=== PATIENT | female | born 1960 | race Caucasian/White ===

== ENCOUNTER 2016-11-18 22:01 | Emergency (ER) | payer MEDICARE, OTHER ==
[2016-11-18 22:16] VITALS: BP 153/94
--- NOTE | 2016-11-18 22:20 | PHYS DOC ---
Past Medical History Past Medical History: Anxiety, Bipolar, Depression, GERD, Hypertension Past Surgical History: Cholecystectomy, Other Additional Past Surgical Histo: R ARM Alcohol Use: None Drug Use: None Adult General Chief Complaint Chief Complaint: FOOT INJURY PAIN HPI HPI Patient is a 56 year old female presents emergency department stating that she stepped her right foot onto the concrete steps. She states that this happened approximately one hour prior to arrival. She does have bruising noted around the third and fourth toe. She has not taken anything for pain and discomfort. Patient is alert and oriented talking to herself in her room. Review of Systems Review of Systems Constitutional: Denies fever or chills [] Eyes: Denies change in visual acuity, redness, or eye pain [] HENT: Denies nasal congestion or sore throat [] Respiratory: Denies cough or shortness of breath [] Cardiovascular: No additional information not addressed in HPI [] GI: Denies abdominal pain, nausea, vomiting, bloody stools or diarrhea [] : Denies dysuria or hematuria [] Musculoskeletal: Denies back pain. Complaint of right foot pain Integument: Denies rash or skin lesions [] Neurologic: Denies headache, focal weakness or sensory changes [] Allergies Allergies Allergies Coded Allergies Type Severity Reaction Last Updated Verified haloperidol Allergy Unknown TARDIVE DYSKENESIA 07/08/15 Yes Physical Exam Physical Exam Constitutional: Well developed, well nourished, no acute distress, non-toxic appearance. [] HENT: Normocephalic, atraumatic, bilateral external ears normal, oropharynx moist, no oral exudates, nose normal. [] Eyes: PERRLA, EOMI, conjunctiva normal, no discharge. [] Neck: Normal range of motion, no tenderness, supple, no stridor. [] Cardiovascular:Heart rate regular rhythm Lungs & Thorax: No respiratory distress noted Skin: Warm, dry, no erythema, no rash. [] Back: No tenderness Extremities: Right foot tenderness, no cyanosis, no clubbing, ROM intact, no edema. Peripheral pulses 2+ cap refill brisk less than 2 seconds good sensation noted to all the toes. Patient does have bruising noted to the metatarsal areas on the third and fourth toe. A shunt able to ambulate on the foot without difficulty. Neurologic: Alert and oriented X 3, normal motor function, normal sensory function, no focal deficits noted. [] Psychologic: Affect normal, judgement normal, mood normal. [] Current Patient Data Vital Signs Vital Signs Date Time Temp Pulse Resp B/P Pulse Ox O2 Delivery O2 Flow Rate FiO2 11/18/16 22:16 98.2 100 20 97 Room Air 98.2 EKG EKG [] Radiology/Procedures Radiology/Procedures [] Course & Med Decision Making Course & Med Decision Making Pertinent Labs and Imaging studies reviewed. (See chart for details) Patient eloped from the department while waiting for x-rays. Patient was very agitated in the emergency department talking to herself and carrying on conversations. Patient was able to ambulate out of the department with a good steady gait. [] Dragon Disclaimer Dragon Disclaimer This electronic medical record was generated, in whole or in part, using a voice recognition dictation system. Departure Departure Impression: Primary Impression: Foot pain, right Additional Impression: At risk for elopement Disposition: 01 HOME, SELF-CARE Condition: STABLE Referrals: OLESYA BURGESS MD (PCP) Problem Qualifiers RAVI MCDOWELL APRN Nov 18, 2016 22:20
== END 2016-11-18 22:55 | disposition home or self-care (01) ==
LOC: ER 22:01
DX: M79.671 Pain in right foot (principal); F31.9 Bipolar disorder, unspecified; K21.9 Gastro-esophageal reflux disease without esophagitis; I10 Essential (primary) hypertension; F41.9 Anxiety disorder, unspecified; F32.9 Major depressive disorder, single episode, unspecified; Z90.49 Acquired absence of other specified parts of digestive tract; Z88.8 Allergy status to other drugs, medicaments and biological substances
CPT/HCPCS: 99281

== ENCOUNTER 2017-10-12 10:22 | Emergency (ER) | payer MEDICARE, OTHER ==
[2017-10-12] MEDS ORDERED: IV NORMAL SALINE 1000ML BAG 1,000 ML IV (11:15)
== END 2017-10-12 12:17 | disposition home or self-care (01) ==
LOC: ER 10:22
DX: S92.321A Displaced fracture of second metatarsal bone, right foot, initial encounter for closed fracture (principal); S92.331A Displaced fracture of third metatarsal bone, right foot, initial encounter for closed fracture; F41.9 Anxiety disorder, unspecified; F31.9 Bipolar disorder, unspecified; K21.9 Gastro-esophageal reflux disease without esophagitis; I10 Essential (primary) hypertension; Z90.49 Acquired absence of other specified parts of digestive tract; Z88.8 Allergy status to other drugs, medicaments and biological substances; W22.8XXA Striking against or struck by other objects, initial encounter; Y93.89 Activity, other specified; Y92.149 Unspecified place in prison as the place of occurrence of the external cause; Y99.8 Other external cause status
CPT/HCPCS: 73630; 99284

== ENCOUNTER 2019-04-09 14:17 | Emergency (ER) | payer MEDICARE, MEDICAID ==
[~2019-04-09] VITALS: Ht 172.7 cm; Wt 104.3 kg
[~2019-04-09 14:17] MED LIST: HYDR-3164 PO
[2019-04-09 15:14] VITALS: BP 124/83
[2019-04-09] MEDS ORDERED: DICL50TA2 PO (15:22)
[2019-04-09] MEDS ORDERED: METH4TAB2 PO (15:22)
[2019-04-09] MEDS ORDERED: CYCL10TA2 PO (15:22)
--- NOTE | 2019-04-09 15:23 | PHYS DOC ---
Past Medical History Past Medical History: Anxiety, Bipolar, Depression, GERD, Hypertension (EMERITA MCLAIN APRN) Past Surgical History: Appendectomy, Cholecystectomy, Other Additional Past Surgical Histo: R ARM (EMERITA MCLAIN APRN) Alcohol Use: None Drug Use: None (EMERITA MCLAIN APRN) Adult General Chief Complaint Chief Complaint: LOWER EXT PAIN HPI HPI Patient is a 58 year old female with history of bipolar, hypertension, depression, acid reflex, who presents to the ED today complaining of 10 out of 10 left groin pain radiating to the left lower extremity that began 3 weeks ago but has gotten worse in the last 1 week. Patient states the pain is worse when she raises her left upper extremity up. She states the pain is relieved when she is laying down. She states she was seen by her own doctor and was given some muscle relaxers and anti-inflammatories, she states she completed them couple days ago. Denies any known injury. Denies any loss of bowel bladder function. (EMERITA MCLAIN APRN) Review of Systems Review of Systems Constitutional: Denies fever or chills [] GI: Denies abdominal pain, nausea, vomiting, bloody stools or diarrhea [] : Denies dysuria or hematuria [] Musculoskeletal:Reports left groin pain radiating to the LLE Integument: Denies rash or skin lesions [] Neurologic: Denies headache, focal weakness or sensory changes [] All other systems were reviewed and found to be within normal limits, except as documented in this note. (EMERITA MCLAIN APRN) Allergies Allergies Allergies Coded Allergies Type Severity Reaction Last Updated Verified haloperidol Allergy Unknown TARDIVE DYSKENESIA 07/08/15 Yes (PATRICK WADSWORTH MD) Physical Exam Physical Exam Constitutional: Well developed, well nourished, no acute distress, non-toxic appearance. [] Skin: Warm, dry, no erythema, no rash. [] Back: No tenderness, no CVA tenderness. Positive straight leg raises to the left lower extremity at approximately 30�. Extremities: No tenderness, no cyanosis, no clubbing, ROM intact, no edema. [] Neurologic: Alert and oriented X 3, normal motor function, normal sensory function, no focal deficits noted. [] Psychologic: Affect normal, judgement normal, mood normal. [] (EMERITA MCLAIN APRN) Current Patient Data Vital Signs Vital Signs Date Time Temp Pulse Resp B/P (MAP) Pulse Ox O2 Delivery O2 Flow Rate FiO2 04/09/19 15:14 98.3 91 16 124/83 (97) 95 Room Air 98.3 (PATRICK WADSWORTH MD) EKG EKG [] (EMERITA MCLAIN APRN) Radiology/Procedures Radiology/Procedures [] (EMERITA MCLAIN APRN) Course & Med Decision Making Course & Med Decision Making Pertinent Labs and Imaging studies reviewed. (See chart for details) This is a 58-year-old female patient presenting to the ED today with pain consistent of sciatica no cauda equina syndrome symptoms. We will send her home discharge with Medrol Dosepak, cyclobenzaprine and diclofenac. Follow-up with PCP in one week. Ice/elevation recommended. Provided return precautions. (EMERITA MCLAIN APRN) Course & Med Decision Making Staff Physician Addendum: I was working in the ER during the course of this patient's visit. I was available for consultation as needed, but I was not directly involved in the care of this patient. (PATRICK WADSWORTH MD) Dragon Disclaimer Dragon Disclaimer This electronic medical record was generated, in whole or in part, using a voice recognition dictation system. (EMERITA MCLAIN APRN) Departure Departure Impression: Primary Impression: Sciatica, left side Disposition: 01 HOME, SELF-CARE (history) Condition: STABLE Referrals: UNKNOWN PCP NAME (PCP) follow up with your doctor in one week Patient Instructions: Sciatica, [id number] Additional Instructions: You were evaluated in the emergency room with pain suspicious of sciatica.Take medicines prescribed as ordered. Follow-up with your doctor in 1-2 weeks. Try to ice and elevate the affected extremity. Scripts Cyclobenzaprine Hcl (CYCLOBENZAPRINE HCL) 10 Mg Tablet 1 TAB PO TID, #30 TAB Prov: EMERITA MCLAIN APRN 04/09/19 Methylprednisolone (MEDROL) 4 Mg Tab.ds.pk 1 PKG PO UD, #1 PKG Prov: EMERITA MCLAIN APRN 04/09/19 Diclofenac Potassium (DICLOFENAC POTASSIUM) 50 Mg Tablet 1 TAB PO BID, #14 TAB 0 Refills Prov: EMERITA MCLAIN APRN 04/09/19 EMERITA MCLAIN APRN Apr 09, 2019 15:22 PATRICK WADSWORTH MD Apr 12, 2019 09:05
== END 2019-04-09 15:33 | disposition home or self-care (01) ==
LOC: ER 14:17
DX: M54.32 Sciatica, left side (principal); R10.32 Left lower quadrant pain; F31.9 Bipolar disorder, unspecified; K21.9 Gastro-esophageal reflux disease without esophagitis; F41.9 Anxiety disorder, unspecified; I10 Essential (primary) hypertension; Z90.89 Acquired absence of other organs; Z90.49 Acquired absence of other specified parts of digestive tract; Z88.8 Allergy status to other drugs, medicaments and biological substances
CPT/HCPCS: 99283

== ENCOUNTER → 2019-04-18 | Outpatient (CLI) | payer MEDICARE, MEDICAID ==
[2019-04-09 15:14] VITALS: BP 124/83
[~2019-04-18] MED LIST changes: +CYCL10TA2 PO; +DICL50TA2 PO; +METH4TAB2 PO
--- NOTE | 2019-04-19 10:22 | RAD ---
LUMBAR SPINE 2-3V History: Severe low back pain Comparison: None. Findings: 2 views of the lumbar spine are submitted. Lumbar vertebral body stature and AP alignment are maintained. There is [id number] degenerative disc disease at L5-S1. There is very mild inferior lumbar levoscoliosis. There is atherosclerotic calcification of the abdominal aorta. There is mild spondylosis greatest L3-4. There is facet degenerative change greater inferiorly of the lumbar spine. There has been cholecystectomy. There is a small calcific opacity projecting over the left superior sacrum. Impression: 1. There is mild spondylosis. There is [id number] L5-S1 degenerative disc disease. There is multilevel facet degenerative change. 2. There is a small calcific opacity projecting over the left superior sacrum. Ureteral calculus is not excluded by this exam although otherwise difficult to characterize AP location. Electronically signed by: John Gould MD (04/19/2019 10:19 AM) [email or web address]
--- NOTE | 2019-04-19 11:12 | RAD ---
HIP LEFT 2 VIEW History: Left hip pain Comparison: None. Findings: 2 views of the left hip are submitted. No acute fracture or dislocation is identified. There is mild osteoarthritic change of the left hip. Left femoral head morphology is maintained. Impression: 1. There is mild osteoarthritic change of the left hip. Electronically signed by: John Gould MD (04/19/2019 11:09 AM) [email or web address]
== END | disposition home or self-care (01) ==
LOC: RAD 16:51
PROVIDERS: ATTEND Internal Medicine Cardiovascular Disease
DX: M51.37 Other intervertebral disc degeneration, lumbosacral region (principal); M47.816 Spondylosis without myelopathy or radiculopathy, lumbar region; M53.88 Other specified dorsopathies, sacral and sacrococcygeal region; M16.12 Unilateral primary osteoarthritis, left hip; I70.0 Atherosclerosis of aorta; Z90.49 Acquired absence of other specified parts of digestive tract
CPT/HCPCS: 72100; 73502

== ENCOUNTER → 2019-04-19 | Outpatient (CLI) | payer MEDICARE, MEDICAID ==
[2019-04-09 15:14] VITALS: BP 124/83
[2019-04-19 09:00] LABS: BASO % 1 % (0-3); EOS # 0.1 x10^3/uL (0.0-0.7); EOS % 2 % (0-3); HEMATOCRIT 41.7 % (36.0-47.0); HEMOGLOBIN 14.3 g/dL (12.0-15.5); LYMPH # 1.4 x10^3/uL (1.0-4.8); LYMPH % 27 % (24-48); MEAN CORPUSCULAR HEMOGLOBIN 32 pg (25-35); MEAN CORPUSCULAR HGB CONC 34 g/dL (31-37); MEAN CORPUSCULAR VOLUME 92 fL (79-100); MONO # 0.4 x10^3/uL (0.0-1.1); MONO % 7 % (0-9); NEUT # 3.3 x10^3/uL (1.8-7.7); NEUT % 63 % (31-73); PLATELET COUNT 143 x10^3/uL (140-400); RED BLOOD COUNT 4.53 x10^6/uL (3.50-5.40); RED CELL DISTRIBUTION WIDTH 13.7 % (11.5-14.5); WHITE BLOOD COUNT 5.2 x10^3/uL (4.0-11.0)
[2019-04-19 09:06] LABS: ALBUMIN 3.2 g/dL (3.4-5.0); ALBUMIN/GLOBULIN RATIO 0.7 (1.0-1.7); CALCIUM 9.1 mg/dL (8.5-10.1); GFR 56.9; POTASSIUM 3.1 mmol/L (3.5-5.1); TOTAL BILIRUBIN 0.7 mg/dL (0.2-1.0); TOTAL PROTEIN 7.7 g/dL (6.4-8.2)
[2019-04-19 09:09] LABS: CHOLESTEROL/HDL RATIO 2.4
[2019-04-20 03:12] LABS: HEMOGLOBIN A1C 5.6 % (4.8-5.6)
== END | disposition home or self-care (01) ==
LOC: LAB 08:13
PROVIDERS: ATTEND Internal Medicine Cardiovascular Disease
DX: I10 Essential (primary) hypertension (principal); E78.2 Mixed hyperlipidemia; J44.9 Chronic obstructive pulmonary disease, unspecified; R73.9 Hyperglycemia, unspecified; F41.1 Generalized anxiety disorder; R53.83 Other fatigue; M54.5 Low back pain
CPT/HCPCS: 80053; 80061; 82164; 83036; 83700; 84436; 84443; 85025; 86141

== ENCOUNTER → 2019-06-03 | Outpatient (CLI) | payer MEDICARE, MEDICAID ==
--- NOTE | 2019-06-03 16:52 | KCIC ---
MRI Lumbar Spine without contrast History: Severe low back pain, left leg radiculopathy Technique: Multiplanar, multi sequential noncontrast MR imaging was performed of the lumbar spine. Comparison: None Findings: Lumbar vertebral body stature is overall maintained other than small Schmorl's nodes such as inferiorly of L1 and T12, also superiorly of T12. There is T2 and STIR hyperintense lesion of the L1 vertebral body on the left about 1 cm CC, slightly hypointense on the T1 sequence. Mild anterior L2-3 corner edema is likely reactive/degenerative in etiology. There is negligible anterior spondylolisthesis L3-4 and L4-L5. Conus terminates at the inferior aspect of L1. There is nonspecific edema of the posterior subcutaneous fat of the lower back. There likely small Tarlov cysts of the sacrum largest on the right at S2-3 about 1 cm longitudinal. Intervertebral disc spaces are relatively maintained, mild degenerative disc disease L1-2 and mild disc desiccation of the more inferior levels. There is a T2 hyperintense lesion of the visualized right kidney about 3.9 cm, most likely a cyst. T12-L1: There is very shallow protrusion in the far left lateral recess 1 to 2 mm AP slightly indenting the ventral thecal sac. There is minimal narrowing of the far left lateral recess. Neural foramina are adequate. L1-L2: There is a shallow broad protrusion eccentric to the right lateral recess about 2 mm AP. There is mild indentation upon the ventral thecal sac without significant spinal stenosis. There is minimal buckling of the ligamentum flavum. Neural foramina are overall adequate. L2-L3: There is minimal disc osteophyte complex. There are anterior and posterior annular tears. There is very shallow protrusion superimposed on disc osteophyte complex in the far left lateral recess, minimal indentation upon the ventral thecal sac without significant spinal stenosis, very minimal narrowing of the far left lateral recess. There is minimal posterior narrowing of the left neural foramen by facet, right neural foramen not significantly narrowed. L3-L4: There is minimal buckling of the ligamentum flavum and facet degenerative change. Neural foramina are adequate. Spinal canal is overall adequate. L4-L5: There is negligible disc osteophyte complex. There is mild narrowing of the far left lateral recess. There is minimal facet degenerative change. Neural foramina are overall adequate. L5-S1: There is minimal facet degenerative change. Spinal canal is overall adequate. Neural foramina are not significantly narrowed. Impression: 1. There is no significant lumbar spinal stenosis, very mild narrowing of the far left lateral recesses at T12-L1, L2-3, L4-5. 2. There is minimal narrowing of the left L2-3 neural foramen. 3. There is negligible anterior spondylolisthesis at L3-4 and L4-5. 4. T2 hyperintense lesion of the visualized right kidney is statistically most likely a cyst. 5. There is a small focus of marrow signal abnormality of the L1 vertebral body. While more aggressive marrow replacing lesion is not excluded based on signal features especially if any history of malignancy, this could be an atypical hemangioma. Small size would be difficult to visualize on bone scan. If clinically needed, follow-up to assess stability such as in 4-6 months could be beneficial. Electronically signed by: John Gould MD (06/03/2019 4:48 PM) [email or web address]
== END | disposition home or self-care (01) ==
LOC: KCIC MRI 14:30
PROVIDERS: ATTEND Internal Medicine Cardiovascular Disease
DX: M47.26 Other spondylosis with radiculopathy, lumbar region (principal); M48.05 Spinal stenosis, thoracolumbar region; M51.16 Intervertebral disc disorders with radiculopathy, lumbar region; M47.818 Spondylosis without myelopathy or radiculopathy, sacral and sacrococcygeal region; M43.16 Spondylolisthesis, lumbar region; N28.89 Other specified disorders of kidney and ureter; M25.78 Osteophyte, vertebrae
CPT/HCPCS: 72148

== ENCOUNTER → 2020-10-12 | Outpatient (CLI) | payer MEDICARE, MEDICAID ==
[~2020-10-12] MED LIST changes: +DEXT10TA2 PO; +HYDR25CA75 PO
--- NOTE | 2020-10-12 12:49 | PDOC1 ---
INITIAL PAIN CONSULT DATE OF SERVICE: DOS: DATE: 10/12/20 TIME: 12:43 CHIEF COMPLAINT: Chief Complaint: Low back and right lower extremity pain HISTORY OF PRESENT ILLNESS: 60-year-old female presents history of pain in the low back and right lower extremity for about 1 year not the result of any specific injury or accident that she is aware but is been increasing with walking standing changing positions with radiating pain across the low back into the right leg mostly in the anterior thigh and medial thigh into the lower leg and medial knee. Patient reports is worse with standing walking bending or stooping repetitive motions with seeing any items twisting in the low back and walking. Patient reports is better with sitting or laying down but wakes her from sleep at least 2-3 times at night. Patient reports not effective bowel bladder control does affect ability to walk she is a cane she is using in her right hand on presentation today. Patient scribes pain is constant sharp stabbing throbbing shooting in the right lower extremity aching and burning in the back and cramping in the leg as well. Patient rates her disability rating 0-10 10 being the worst is a 7-10 with a family home responsibilities and social activity 9-10 with recreation occupation and sexual behavior 6 with self-care 9 with life support activities especially sleeping. Patient is taking hydrocodone as well as muscle relaxer she is also tried Motrin and Tylenol and Aleve [id number] which did fully decrease the pain by very small amount. Patient reports the best relief is with hydrocodone was only temporary lasting about 1 hour by about 40%. Patient reports that she is doing physical therapy on her own and is doing some stretching and strength exercises daily and trying to walk daily but the pain is limiting her from doing this. Patient does continue to do stretching exercises however. Patient did have an MRI scan of the lumbar spine which is dated May 2019 showing at L1 to a shallow broad-based protrusion eccentric to the right lateral recess about 2 mm in anterior posterior dimensions with mild indentation upon the ventral thecal sac without significant spinal stenosis L2-3 shows anterior and posterior annular tears and a very shallow protrusion superimposed on disc osteophyte complex in the far left lateral recess with minimal indentation upon the ventral thecal sac as well. She reports no loss of motor function but significant fatigability of the right leg with walking or standing even with walking for more than about 5 minutes. PAST MEDICAL HISTORY: PMH: Hypertension, type 2 diabetes, arthritis, colitis, bipolar disorder PREVIOUS SURGERIES: Past Surgical Hx: Appendectomy, cholecystectomy CURRENT MEDICATIONS: Current Meds: Active Scripts Medications Dose Route/Sig Max Daily Dose Days Date Category Hydroxyzine Pamoate 25 Mg Capsule 1 Cap PO BID 10/12/20 Reported Dextroamphetamine Sulfate 10 Mg Tablet 1 Tab PO TID 10/12/20 Reported Cyclobenzaprine Hcl 10 Mg Tablet 1 Tab PO TID 04/09/19 Rx [place] 5-325 Tablet (Acetaminophen/Hydrocodone Bitart) 1 Each Tablet 1 Tab PO BID 10/12/17 Rx ALLERGIES; Allergies: Coded Allergies: haloperidol (Verified Allergy, Unknown, TARDIVE DYSKENESIA, 07/08/15) FAMILY HISTORY: Family Hx: Cancer in patient's sister and diabetes in patient's father SOCIAL HISTORY: Social Hx: Patient does not drink alcohol smokes cigars only very rarely reports that she uses methamphetamines about once a month but not any other illegal or recreational drugs. Patient is single lives locally in [facility], reports she is currently on disability from her bipolar disorder. REVIEW OF SYSTEMS: ROS: Positive for those items mentioned in history of present illness, all systems are reviewed, otherwise negative ,and are complete full and well-documented on patient's chart. PHYSICAL EXAM: VS: Blood pressure is 131/96 pulse 96 respirations 18 temperature 98.6 F height is 5 feet 8 inches weight is 233 pounds PE: PHYSICAL EXAMINATION: GENERAL: The patient is awake, alert, oriented, appropriate, very pleasant demeanor. HEENT: Shows normocephalic, atraumatic. Extraocular movements are intact and symmetrical. Oral cavity: Mucous membranes moist and pink. Dentition is intact. NECK: Shows anterior throat supple without palpable lymphadenopathy noted. Swallow reflex symmetrical. CHEST: Shows normal on inspection. Breath sounds are clear bilaterally, no ra les rhonchi or wheezes auscultated. HEART: Shows S1, S2 clear. No murmurs auscultated. ABDOMEN: Soft, nontender, nondistended, obese. No palpable organomegaly is noted. No rebound or guarding demonstrated. BACK: Shows spine grossly in the midline. Normal-appearing cervical lordotic curvature. There is slightly increased thoracic kyphosis, some minor flattening of the lumbar lordotic curvature. Lumbar paraspinous muscles show symmetrical on inspection, on palpation shows some moderate tenderness diffusely throughout the upper, middle and lower distribution of the paraspinous muscles bilaterally and also into the lower thoracic paraspinous musculature, firm and tender, but without specific trigger points, without radiation of pain. The patient has good rotational motion of the lumbar spine, both laterally as well as extension and flexion without significant difficulty. No tenderness over the spinous processes, sacrum or sacroiliac regions. EXTREMITIES: Lower extremities show deep tendon reflexes 1+ in the patellar and tendo calcaneus tendons. Motor exam is 4 on a scale of 5 with right dorsiflexion, extension, quadriceps and hamstring flexion and 5/5 on the left. Peripheral pulses are 1+ posterior tibial. No peripheral edema is noted bilaterally. Lower extremities are warm and dry to touch, equal in color and appearance. Straight leg raise noted to be positive on the right about 45 degrees, left side is []. Gaenslen's and Russel's maneuvers are negative as well. The patient is able to stand, stand on her toes without significant difficulty loss of balance walks with a favoring gait does appear to favor the right lower extremity and again is using a cane in the right hand ambulate. SKIN: Shows warm and dry, good turgor. No edema. No sores, rashes or bruising throughout. IMPRESSION: Impression: 60-year-old female with approximate 1 year history increasing pain low back and right lower extremity radicular fashion. Type 2 diabetes Arthritis Hypertension Bipolar disorder Plan: Options were discussed with the patient including conservative medical management physical therapies interventional techniques. Patient would like to pursue interventional techniques. We discussed a lumbar epidural steroid injection using description as well as anatomical models to describe the procedure. We will wait for preauthorization with patient's insurance provider in the meantime she will continue doing stretching strength exercises daily taking oral analgesics and anti-inflammatories as currently. Patient will return to clinic we will plan on translaminar L2-3 lumbar epidural steroid injection at that time. UGO COYNE MD Oct 12, 2020 12:49
== END | disposition home or self-care (01) ==
LOC: PNCL 10:10
PROVIDERS: ATTEND Anesthesiology
DX: M79.604 Pain in right leg (principal); M54.5 Low back pain; I10 Essential (primary) hypertension; E11.9 Type 2 diabetes mellitus without complications; M19.90 Unspecified osteoarthritis, unspecified site; F31.9 Bipolar disorder, unspecified; F17.210 Nicotine dependence, cigarettes, uncomplicated; Z79.899 Other long term (current) drug therapy; Z90.49 Acquired absence of other specified parts of digestive tract; Z98.890 Other specified postprocedural states; Z88.8 Allergy status to other drugs, medicaments and biological substances
CPT/HCPCS: G0463

== ENCOUNTER → 2020-10-28 | Outpatient (CLI) | payer MEDICARE, MEDICAID ==
[~2020-10-28] MED LIST changes: +IOHEXOL 180 MG/ML 10 ML VIAL. ONE; +OXCA150T19 PO; +methylPREDNISolone ACETATE 40 MG/ML VIAL. ONE; +methylPREDNISolone ACETATE 80 MG/ML VIAL. ONE
--- NOTE | 2020-10-28 14:27 | PDOC ---
Progress Note - Pain Clinic Date of Service: DOS: DATE: 10/28/20 TIME: 14:24 Diagnosis: Dx: Lumbar radiculopathy with lumbar degenerative disc disease History or Present Illness: HPI: 60-year-old female returns follow-up status post initial evaluation preauthorization for lumbar epidural steroid injection. Patient is obtained authorization now like to proceed. Patient reports still the low back and into the right greater than left lower extremity mostly posterior gluteus lateral thigh anterior thigh medial thigh and groin and the medial anterior calf as well on the right side patient reports is worse with walking and standing changing positions better with sitting or laying down patient reports still waking her from sleep about every 2-3 hours patient reports no new motor or sensory deficits no bowel or bladder incontinence reports her pain is a 9-10 on scale 10 is worse over the past week 8-9 on average 8 its least patient reports is a 9 today patient reported aching sharp tight dull cramping and stabbing sometimes unbearable and constant with walking and standing. Patient reports he is using a cane and she has it with her today using her left hand and has missed walking her dog as she is unable to walk secondary to the pain. Physical Exam: VS: Blood pressure is 160/98 pulse 96 respirations 18 temperature 98.8 F weight is 237 pounds PE: PHYSICAL EXAMINATION: GENERAL: The patient is awake, alert, oriented, appropriate, very pleasant demeanor HEENT: Shows normocephalic, atraumatic. Extraocular movements are intact and symmetrical. Oral cavity: Mucous membranes moist and pink. NECK: Shows anterior throat supple without palpable lymphadenopathy noted. Swallow reflex symmetrical. CHEST: Shows normal on inspection. Breath sounds are clear bilaterally. HEART: Shows S1, S2 clear. No murmurs auscultated. ABDOMEN: Soft, nontender, nondistended, obese. No palpable organomegaly is noted. BACK: Shows spine grossly in the midline. Normal-appearing cervical lordotic curvature. There is slightly increased thoracic kyphosis, some minor flattening of the lumbar lordotic curvature. Lumbar paraspinous muscles show symmetrical on inspection, on palpation shows some moderate tenderness diffusely throughout the upper, middle and lower distribution of the paraspinous muscles without specific trigger points, without radiation of pain. The patient has good rotational motion of the lumbar spine, both laterally as well as extension and flexion without significant difficulty. No tenderness over the spinous processes, sacrum or sacroiliac regions. EXTREMITIES: Lower extremities show deep tendon reflexes 1+ in the patellar and tendo calcaneus tendons. Motor exam is 4 on a scale of 5 with right dorsiflexion, extension, quadriceps and hamstring flexion and 5/5 on the left. Peripheral pulses are 1+ posterior tibial. No peripheral edema is noted bilaterally. Lower extremities are warm and dry to touch, equal in color and appearance. SKIN: Shows warm and dry, good turgor. No edema. No sores, rashes or bruising throughout. Procedure: Procedure: Options were discussed with the patient. Patient chart reviews her current medication regimen updated current review of systems updated today as well. We will proceed with a lumbar epidural steroid injection stable fluoroscopic guidance. Risks were discussed including but not limited to: Bleeding, infection, possibility of epidural hematoma and subsequent neurological compromise, dural puncture, headaches, spinal cord and/or nerve damage, side effects of steroid medication, and poor results regarding pain control. Patient understands and wished to proceed. Patient return to the clinic in approximate 2 weeks for follow-up, was counseled as return appointment, activity level and side effects to be aware of. Medication Injected: Med Injected: Procedure is lumbar epidural steroid injection under local anesthetic using sterile prep and drape at the L2-3 level using C-arm fluoroscopic guidance in both AP and lateral views medications injected is 120 mg Depo-Medrol + 10 mL preservative-free normal saline and 2 mL contrast- condition at discharge is stable patient tolerated procedure well had no complications. Condition at Discharge: Condition at Discharge: Condition at discharge is stable, patient tolerated the procedure well and had no complications. UGO COYNE MD Oct 28, 2020 14:27
--- NOTE | 2020-10-28 14:28 | PDOC4 ---
PROCEDURE Procedure Patient was consented for lumbar epidural steroid injection. Risks were dis cussed including but not limited to: Bleeding, infection, possibility of epidural hematoma and subsequent neurological compromise, dural puncture, headaches, spinal cord and/or nerve damage, side effects of steroid medication, and poor results regarding pain control. Patient understands and wished to proceed. Procedure is lumbar epidural steroid injection under local anesthetic using sterile prep and drape at the L2-3 level using C-arm fluoroscopic guidance in both AP and lateral views medications injected is 120 mg Depo-Medrol + 10 mL preservative-free normal saline and 2 mL contrast- condition at discharge is stable patient tolerated procedure well had no complications. UGO COYNE MD Oct 28, 2020 14:28
== END | disposition home or self-care (01) ==
LOC: PNCL 13:37
PROVIDERS: ATTEND Anesthesiology
DX: M51.16 Intervertebral disc disorders with radiculopathy, lumbar region (principal); F17.210 Nicotine dependence, cigarettes, uncomplicated; Z79.899 Other long term (current) drug therapy; Z88.8 Allergy status to other drugs, medicaments and biological substances
CPT/HCPCS: 62323; J1030; J1040; Q9965; 77002

== ENCOUNTER → 2020-12-02 | Outpatient (CLI) | payer MEDICARE, MEDICAID ==
[~2020-12-02] MED LIST changes: -IOHEXOL 180 MG/ML 10 ML VIAL. ONE; -methylPREDNISolone ACETATE 40 MG/ML VIAL. ONE; -methylPREDNISolone ACETATE 80 MG/ML VIAL. ONE
--- NOTE | 2020-12-02 14:17 | PDOC ---
Progress Note - Pain Clinic Date of Service: DOS: DATE: 12/02/20 TIME: 14:13 Diagnosis: Dx: Lumbar radiculopathy with lumbar degenerative disc disease History or Present Illness: HPI: 60-year-old female returns for follow-up status post lumbar epidural steroid injection x1. Patient reports about 75% improvement initially now about 50% improved but still lasting over the past several weeks patient had the injection on October 28 and has been over a month now with good relief patient reports some pain returning down the right lower extremity posterior gluteus lateral thigh anterior thigh anteromedial thigh medial groin and medial thigh to the level of the knee worse with walking standing patient reports she is been increasing her activity with distance walking doing household activities greater ease and comfort travel with greater ease and comfort sleeping much better is no longer waking her from sleep at night. Patient reports still has some pain radiating the right groin with walking standing but feels much more stable on her feet. Patient reports her balance is better and she is quite pleased with this patient rates her pain as an 8 on scale 10 is worse over the past week 7 on average 6 its least and is a 6 today. Patient reports no new motor or sensory deficit scribes pain is aching and sharp and tight in the right leg and low back and tingling in the leg as well can be constant with standing for prolonged periods but much improved and still improved overall about 50% currently with the injection. Patient continues to do stretching and strengthening exercises on her own, daily. Physical Exam: VS: Blood pressure is 102/66 pulse 67 respiration 16 temperature 98.4 F weight is 233 pounds PE: PHYSICAL EXAMINATION: GENERAL: The patient is awake, alert, oriented, appropriate, very pleasant demeanor HEENT: Shows normocephalic, atraumatic. Extraocular movements are intact and symmetrical. Oral cavity: Mucous membranes moist and pink. Dentition is intact. NECK: Shows anterior throat supple without palpable lymphadenopathy noted. Swallow reflex symmetrical. CHEST: Shows normal on inspection. Breath sounds are clear bilaterally. HEART: Shows S1, S2 clear. No murmurs auscultated. ABDOMEN: Soft, nontender, nondistended. No palpable organomegaly is noted. BACK: Shows spine grossly in the midline. Normal-appearing cervical lordotic curvature. There is slightly increased thoracic kyphosis, some minor flattening of the lumbar lordotic curvature. Lumbar paraspinous muscles show symmetrical on inspection, on palpation shows some moderate tenderness diffusely throughout the upper, middle and lower distribution of the paraspinous muscles, but without specific trigger points, without radiation of pain. The patient has good rotati onal motion of the lumbar spine, both laterally as well as extension and flexion without significant difficulty. EXTREMITIES: Lower extremities show deep tendon reflexes 1+ in the patellar and tendo calcaneus tendons. Motor exam is 4 on a scale of 5 with right dorsiflexion, extension, quadriceps and hamstring flexion and 5/5 on the left. Peripheral pulses are 1+ posterior tibial. No peripheral edema is noted bilaterally. Lower extremities are warm and dry to touch, equal in color and appearance. SKIN: Shows warm and dry, good turgor. No edema. No sores, rashes or bruising. Procedure: Procedure: Options discussed with the patient. Patient's old chart was reviewed as her current medication regimen updated current review of systems updated today as well. We will preauthorize patient for second lumbar epidural steroid injection as she did very well after the first injection still a month out with at least a 50% improvement in the radicular pain and a right L2-3 dermatomal distribution. Patient continue with stretching and strength exercises in the meantime we will wait for preauthorization with her insurance provider for second translaminar approach L2-3 lumbar epidural steroid injection. Medication Injected: Med Injected: None Condition at Discharge: Condition at Discharge: Condition at discharge is stable. UGO COYNE MD Dec 02, 2020 14:16
== END | disposition home or self-care (01) ==
LOC: PNCL 13:55
PROVIDERS: ATTEND Anesthesiology
DX: M51.16 Intervertebral disc disorders with radiculopathy, lumbar region (principal); F17.210 Nicotine dependence, cigarettes, uncomplicated; Z79.899 Other long term (current) drug therapy; Z88.8 Allergy status to other drugs, medicaments and biological substances
CPT/HCPCS: G0463

== ENCOUNTER → 2020-12-16 | Outpatient (CLI) | payer MEDICARE, MEDICAID ==
[~2020-12-16] MED LIST changes: +IOHEXOL 180 MG/ML 10 ML VIAL. ONE; +methylPREDNISolone ACETATE 40 MG/ML VIAL. ONE; +methylPREDNISolone ACETATE 80 MG/ML VIAL. ONE
--- NOTE | 2020-12-16 15:14 | PDOC ---
Progress Note - Pain Clinic Date of Service: DOS: DATE: 12/16/20 TIME: 15:11 Diagnosis: Dx: Lumbar radiculopathy with lumbar degenerative disc disease History or Present Illness: HPI: 60-year-old female returns follow-up status post lumbar epidural straight injection x1 with 75% improvement patient had waited for preauthorization for a second injection is obtained that now would like to proceed. Patient reports still pain low back right lower extremity as it was previously posterior low back gluteus into the anterior thigh anteromedial thigh medial lower leg as well and the knee especially patient ports a 9 on scale 10 is worse over the past week 7 on average 5 its least is a 5 today patient reports aching sharp dull tingling in the right leg worse with walking standing weightbearing better with sitting or laying down generally does not awaken her from sleep at night patient reports no new motor or sensory deficits initially shooting muscular distance walking was helpful activities and travel with greater ease and comfort as well. Patient reports no new motor or sensory deficits no new bowel or bladder incontinence at this time. Physical Exam: VS: Blood pressure is 149/105 pulse 98 respirations are 16 temperature 98.1 F weight is 234 pounds PE: PHYSICAL EXAMINATION: GENERAL: The patient is awake, alert, oriented, appropriate, very pleasant de meanor HEENT: Shows normocephalic, atraumatic. Extraocular movements are intact and symmetrical. Oral cavity: Mucous membranes moist and pink. Dentition is intact. NECK: Shows anterior throat supple without palpable lymphadenopathy noted. Swallow reflex symmetrical. CHEST: Shows normal on inspection. Breath sounds are clear bilaterally, distant but no rales rhonchi or wheezes auscultated HEART: Shows S1, S2 clear. No murmurs auscultated. ABDOMEN: Soft, nontender, nondistended, obese. No palpable organomegaly is noted. No rebound or guarding demonstrated. BACK: Shows spine grossly in the midline. Normal-appearing cervical lordotic curvature. There is slightly increased thoracic kyphosis, some minor flattening of the lumbar lordotic curvature. Lumbar paraspinous muscles show symmetrical on inspection, on palpation shows some moderate tenderness diffusely throughout the upper, middle and lower distribution of the paraspinous muscles, but without specific trigger points, without radiation of pain. The patient has good rotational motion of the lumbar spine, both laterally as well as extension and flexion without significant difficulty. No tenderness over the spinous processes, sacrum or sacroiliac regions. EXTREMITIES: Lower extremities show deep tendon reflexes 1+ in the patellar and tendo calcaneus tendons. Motor exam is 4 on a scale of 5 with right dorsiflexion, extension, quadriceps and hamstring flexion and 5/5 on the left. Peripheral pulses are 1+ posterior tibial. No peripheral edema is noted bilaterally. Lower extremities are warm and dry. SKIN: Shows warm and dry, good turgor. No edema. No sores, rashes or bruising throughout. Procedure: Procedure: Options discussed with the patient. Patient's old chart was reviewed as her current medication regimen updated current review of systems updated today as well. We will proceed with a second in the series lumbar epidural steroid traction today with fluoroscopic guidance. Risks were discussed including but not limited to: Bleeding, infection, possibility of epidural hematoma and subsequent neurological compromise, dural puncture, headaches, spinal cord and/or nerve damage, side effects of steroid medication, and poor results regarding pain control. Patient understands and wished to proceed. She will return to the clinic in approximate 2 weeks for follow-up, was counseled as return appointment activity level and side effects to be aware. Medication Injected: Med Injected: Procedure is lumbar epidural steroid injection under local anesthetic using sterile prep and drape at the L2-3 level using C-arm fluoroscopic guidance in both AP and lateral views medications injected is 120 mg Depo-Medrol +10mL preservative-free normal saline and 2 mL contrast- condition at discharge is stable patient tolerated procedure well had no complications. Condition at Discharge: Condition at Discharge: Condition at discharge stable, patient alert the procedure well and had no complications. UGO COYNE MD December 16, 2020 15:14
--- NOTE | 2020-12-16 15:14 | PDOC4 ---
PROCEDURE Procedure Patient was consented for lumbar epidural steroid injection. Risks were dis cussed including but not limited to: Bleeding, infection, possibility of epidural hematoma and subsequent neurological compromise, dural puncture, headaches, spinal cord and/or nerve damage, side effects of steroid medication, and poor results regarding pain control. Patient understands and wished to proceed. Procedure is lumbar epidural steroid injection under local anesthetic using sterile prep and drape at the L2-3 level using C-arm fluoroscopic guidance in both AP and lateral views medications injected is 120 mg Depo-Medrol +10mL preservative-free normal saline and 2 mL contrast- condition at discharge is stable patient tolerated procedure well had no complications. UGO COYNE MD December 16, 2020 15:14
== END | disposition home or self-care (01) ==
LOC: PNCL 14:08
PROVIDERS: ATTEND Anesthesiology
DX: M51.16 Intervertebral disc disorders with radiculopathy, lumbar region (principal); F17.210 Nicotine dependence, cigarettes, uncomplicated; Z79.899 Other long term (current) drug therapy; Z98.890 Other specified postprocedural states; Z88.8 Allergy status to other drugs, medicaments and biological substances
CPT/HCPCS: 62323; J1030; J1040; Q9965

== ENCOUNTER → 2021-06-03 | Outpatient (CLI) | payer MEDICARE, MEDICAID ==
[~2021-06-03] MED LIST changes: +CYCL10TA19 PO; -CYCL10TA2 PO; -IOHEXOL 180 MG/ML 10 ML VIAL. ONE; -methylPREDNISolone ACETATE 40 MG/ML VIAL. ONE; -methylPREDNISolone ACETATE 80 MG/ML VIAL. ONE
--- NOTE | 2021-06-03 14:30 | PDOC ---
Progress Note - Pain Clinic Date of Service: DOS: DATE: 06/03/21 TIME: 14:26 Diagnosis: Dx: Lumbar radiculopathy with lumbar degenerative disc disease History or Present Illness: HPI: 60-year-old female returns for follow-up last seen December 16, 2020 patient did very well after lumbar epidural steroid injection with about 80% improvement in the low back and right lower extremity patient reports that the pain is now returning in the low back into the right lower extremity in a anterior aspect of the thigh and groin as well as in the low back patient reports some tenderness in the groin as well and the superior lateral aspect of the quadriceps on the a nterior aspect of the leg. Patient reports is an 8 on scale 10 is worse over the past week 7 on average 7 at its least is a 7 today. Patient reports the pain is sharp and aching cramping in the low back radiating shooting can be severe on and off in intensity better with laying or sitting down patient reports it generally does not awaken her from sleep at night initially to do mu ch better distance walking doing household activities work activities travel with greater ease and comfort and sleeping better now the pain is beginning to awaken her from sleep about once a night patient reports no motor deficits but significant fatigability in the right lower extremity as well as no bowel or bladder incontinence. Physical Exam: VS: Blood pressure is 154 pulse 93 respirations 18 temperature 98.2 F height is 5 feet 8 inches weight is 226 pounds PE: PHYSICAL EXAMINATION: GENERAL: The patient is awake, alert, oriented, appropriate, very pleasant in demeanor HEENT: Shows normocephalic, atraumatic. Extraocular movements are intact and symmetrical. Oral cavity: Mucous membranes moist and pink. Dentition is intact. NECK: Shows anterior throat supple without palpable lymphadenopathy noted. Swallow reflex symmetrical. CHEST: Shows normal on inspection. Breath sounds are clear bilaterally, distant but no rales rhonchi wheezes auscultated. HEART: Shows S1, S2 clear. No murmurs auscultated. ABDOMEN: Soft, nontender, nondistended, obese. No palpable organomegaly is noted. BACK: Shows spine grossly in the midline. Normal-appearing cervical lordotic curvature. There is slightly increased thoracic kyphosis, some minor flattening of the lumbar lordotic curvature. Lumbar paraspinous muscles show symmetrical on inspection, on palpation shows some moderate tenderness diffusely throughout the upper, middle and lower distribution of the paraspinous muscles, but without specific trigger points, without radiation of pain. The patient has good rotational motion of the lumbar spine, both laterally as well as extension and flexion without significant difficulty. EXTREMITIES: Lower extremities show deep tendon reflexes 1+ in the patellar and tendo calcaneus tendons. Motor exam is 5 on a scale of 5 with right dorsiflexion, extension, quadriceps and hamstring flexion and 4/5 on the left. Peripheral pulses are 1+ posterior tibial. No peripheral edema is noted bilaterally. Lower extremities are warm and dry to touch, equal in color and appearance. SKIN: Shows warm and dry, good turgor. No edema. No sores, rashes or bruising throughout. Procedure: Procedure: Options were discussed with the patient. Patient old chart reviewed as was her current medication regimen as well current review of systems reviewed and updated today as well. We will preauthorize patient for a lumbar epidural steroid injection as she still has clinical radiculopathy L2-3 dermatomal distribution in the right lower extremity. Patient continue with stretching strength exercise as well as oral analgesics as currently and once approved we will have her return for translaminar approach L2-3 level lumbar epidural steroid injection with fluoroscopic guidance at that time. Medication Injected: Med Injected: None Condition at Discharge: Condition at Discharge: Condition at discharge is stable. UGO COYNE MD Jun 03, 2021 14:30
== END | disposition home or self-care (01) ==
LOC: PNCL 14:06
PROVIDERS: ATTEND Anesthesiology
DX: M51.16 Intervertebral disc disorders with radiculopathy, lumbar region (principal); F17.210 Nicotine dependence, cigarettes, uncomplicated; Z79.899 Other long term (current) drug therapy; Z88.8 Allergy status to other drugs, medicaments and biological substances
CPT/HCPCS: 99212; G0463

== ENCOUNTER → 2021-06-24 | Outpatient (CLI) | payer MEDICARE, MEDICAID ==
[~2021-06-24] MED LIST changes: +IOHEXOL 180 MG/ML 10 ML VIAL. ONE; +methylPREDNISolone ACETATE 40 MG/ML VIAL. ONE; +methylPREDNISolone ACETATE 80 MG/ML VIAL. ONE
--- NOTE | 2021-06-24 14:49 | PDOC ---
Progress Note - Pain Clinic Date of Service: DOS: DATE: 06/24/21 TIME: 14:46 Diagnosis: Dx: Lumbar radiculopathy with lumbar degenerative disc disease History or Present Illness: HPI: 60-year-old female returns for follow-up status post lumbar epidural steroid injections most recently December 16, 2020 patient reports she did very well with about 80% improvement and is still lasting but the pain is returning now in the low back and right lower extremity as well as the left hip patient reports he is getting out of her car a few days ago and she had a popping sensation in the left hip which hurt initially but then the pain began to subside and is still s ignificant in the left hip as well as the right leg which is new for her patient reports that traditionally is only on the right side but now is on the left as well patient reports no bowel or bladder incontinence reports the pain is a 9 on scale 10 is worst 7 on average for its least is a 5 today. Patient describes aching and sharp in the back radiating shooting burning cramping the leg on and off intensity worse with walking standing better with sitting or laying down and has been awakening from sleep again over the past week or so patient reports initially she do much better with distance walking doing household activities travel with greater ease and comfort as well. Patient reports no bowel or bladder incontinence. Physical Exam: VS: Blood pressure is 144/104 pulse 84 respirations 20 temperature 98.3 F height is 5 foot 8 inches weight is 231 pounds PE: PHYSICAL EXAMINATION: GENERAL: The patient is awake, alert, oriented, appropriate, very pleasant in demeanor HEENT: Shows normocephalic, atraumatic. Extraocular movements are intact and symmetrical. Oral cavity: Mucous membranes moist and pink. Dentition is intact. NECK: Shows anterior throat supple without palpable lymphadenopathy noted. Swallow reflex symmetrical. CHEST: Shows normal on inspection. Breath sounds are clear bilaterally, distant but no rales or rhonchi. HEART: Shows S1, S2 clear. No murmurs auscultated. ABDOMEN: Soft, nontender, nondistended, obese. No palpable organomegaly is noted. BACK: Shows spine grossly in the midline. Normal-appearing cervical lordotic curvature. There is slightly increased thoracic kyphosis, some minor flattening of the lumbar lordotic curvature. Lumbar paraspinous muscles show symmetrical on inspection, on palpation shows some moderate tenderness diffusely throughout the upper, middle and lower distribution of the paraspinous muscles without specific trigger points, without radiation of pain. The patient has good rotational motion of the lumbar spine, both laterally as well as extension and flexion without significant difficulty. No tenderness over the spinous processes, sacrum or sacroiliac regions. EXTREMITIES: Lower extremities show deep tendon reflexes 1+ in the patellar and tendo calcaneus tendons. Motor exam is 4 on a scale of 5 with right dorsiflexion, extension, quadriceps and hamstring flexion and 5/5 on the left. Peripheral pulses are 1+ posterior tibial. No peripheral edema is noted bilaterally. Lower extremities are warm and dry. SKIN: Shows warm and dry, good turgor. No edema. No sores, rashes or bruising throughout. Procedure: Procedure: Options discussed with patient. Patient chart reviews her current medication regimen updated current review of systems updated today as well. We will proceed with a lumbar epidural steroid injection stable fluoroscopic guidance. Risks were discussed including but not limited to: Bleeding, infection, possibility of epidural hematoma and subsequent neurological compromise, dural puncture, headaches, spinal cord and/or nerve damage, side effects of steroid medication, and poor results regarding pain control. Patient understands and wished to proceed. Patient will return to clinic in approximately 2 weeks for follow-up, was counseled as to return appointment, activity level, and side effect to be aware of. Medication Injected: Med Injected: Procedure is lumbar epidural steroid injection under local anesthetic using sterile prep and drape at the L2-3 level using C-arm fluoroscopic guidance in both AP and lateral views medications injected is 120 mg Depo-Medrol +10mL preservative-free normal saline and 2 mL contrast- condition at discharge is stable patient tolerated procedure well had no complications. Condition at Discharge: Condition at Discharge: Condition at discharge is stable, patient tolerated procedure well and had no complications. UGO COYNE MD Jun 24, 2021 14:49
--- NOTE | 2021-06-24 14:50 | PDOC4 ---
Procedure Note: ICD 10 Code: ICD 10 Code: M54.16 M51.36 Procedure Note: Patient was consented for lumbar epidural steroid injection with fluoroscopic guidance. Risks were discussed including but not limited to: Bleeding, infection, possibility of epidural hematoma and subsequent neurological compromise, dural puncture, headaches, spinal cord and/or nerve damage, side effects of steroid medication, and poor results regarding pain control. Patient understands and wished to proceed. Procedure is lumbar epidural steroid injection under local anesthetic using sterile prep and drape at the L2-3 level using C-arm fluoroscopic guidance in both AP and lateral views medications injected is 120 mg Depo-Medrol +10mL preservative-free normal saline and 2 mL contrast- condition at discharge is stable patient tolerated procedure well had no complications. UGO COYNE MD Jun 24, 2021 14:50
== END | disposition home or self-care (01) ==
LOC: PNCL 14:09
PROVIDERS: ATTEND Anesthesiology
DX: M51.16 Intervertebral disc disorders with radiculopathy, lumbar region (principal); F17.210 Nicotine dependence, cigarettes, uncomplicated; Z79.899 Other long term (current) drug therapy; Z88.8 Allergy status to other drugs, medicaments and biological substances
CPT/HCPCS: 62323; J1030; J1040; Q9965

== ENCOUNTER → 2021-12-28 | Outpatient (CLI) | payer MEDICARE, MEDICAID ==
[~2021-12-28] MED LIST changes: -IOHEXOL 180 MG/ML 10 ML VIAL. ONE; -methylPREDNISolone ACETATE 40 MG/ML VIAL. ONE; -methylPREDNISolone ACETATE 80 MG/ML VIAL. ONE
--- NOTE | 2021-12-28 13:51 | PDOC ---
Progress Note - Pain Clinic Date of Service: DOS: DATE: 12/28/21 TIME: 13:45 Diagnosis: Dx: Lumbar radiculopathy with lumbar degenerative disc disease History or Present Illness: HPI: 61-year-old female returns last seen June 24, 2021 did very well after lumbar epidural steroid injection about 90% improvement initially now down about 60% overall but has been about 6 months since her last visit. Patient reports he is doing very well with the pain is beginning to return with increased activity radiating to the posterior gluteus is with the lateral thigh anterior thigh medial thigh and medial upper thigh into the groin at times into the medial knee on the left side patient report is worse with walking standing changing positions patient has done physical therapy and is starting it again later today. Patient reports her pain to 7 on scale 10 is worse over the past week 7 on average 7 at its least is a 7 today. Patient reported aching and tight can be stabbing and cramping shooting and radiating to the left lower extremity as described. Patient reports no loss of motor function no bowel or bladder incontinence. Patient's been taking [id number] analgesics Tylenol as well as ibuprofen with only minimal decrease in pain. Patient is using heating pads as well as doing the stretching 3 exercises from her previous physical therapy and again starts a new round of physical therapy later today. Patient reports no bowel or bladder incontinence, no loss of motor function but significant fatigability of the left lower extremity with ambulation. Physical Exam: VS: Blood pressure is 186/120 pulse 88 respirations 18 temperature 99.1 F height 5 foot 8 inches weight 232 pounds. PE: PHYSICAL EXAMINATION: GENERAL: The patient is awake, alert, oriented, appropriate, very pleasant in demeanor HEENT: Shows normocephalic, atraumatic. Extraocular movements are intact and symmetrical. Oral cavity: Mucous membranes moist and pink. Dentition is intact. NECK: Shows anterior throat supple without palpable lymphadenopathy noted. Swallow reflex symmetrical. CHEST: Shows normal on inspection. Breath sounds are clear bilaterally, distant but no rales rhonchi or wheezes auscultated. HEART: Shows S1, S2 clear. No murmurs auscultated. ABDOMEN: Soft, nontender, nondistended. No palpable organomegaly is noted. BACK: Shows spine grossly in the midline. Normal-appearing cervical lordotic curvature. There is mild increased thoracic kyphosis, some flattening of the lumbar lordotic curvature. Lumbar paraspinous muscles show symmetrical on inspection, on palpation shows some moderate tenderness diffusely throughout the upper, middle and lower distribution of the paraspinous muscles, but without specific trigger points, without radiation of pain. The patient has good rotational motion of the lumbar spine, both laterally as well as extension and flexion without significant difficulty. EXTREMITIES: Lower extremities show deep tendon reflexes 1+ in the patellar and tendo calcaneus tendons. Motor exam is 5 on a scale of 5 with right dorsiflexion, extension, quadriceps and hamstring flexion and 4/5 on the left. Peripheral pulses are 1+ posterior tibial. No peripheral edema is noted bilaterally. Patient has positive straight leg raise on the left at approximately 40 degrees, decreased knee flexion right side is negative. Lower extremities are warm and dry to touch, equal in color and appearance. SKIN: Shows warm and dry, good turgor. No edema. No sores, rashes or bruising throughout. Procedure: Procedure: Options discussed with the patient. Patient's old chart was reviewed as her current medication regimen updated current review of systems updated today as well. Patient still with clinical radiculopathy and L2-3 dermatomal distribution on the left. We will preauthorize patient for lumbar epidural steroid injection she did very well with the last injection with almost 6 months of decreased pain significantly near 80%. Patient would like to wait for preauthorization with insurance provider once approved, patient would like to proceed with translaminar approach L2-3 level lumbar epidural steroid injection with fluoroscopic guidance. Patient the meantime will start physical therapy again and maintain physical therapy exercise as well as oral analgesics as currently. Medication Injected: Med Injected: None Condition at Discharge: Condition at Discharge: Condition at discharge is stable. UGO COYNE MD December 28, 2021 13:50
== END | disposition home or self-care (01) ==
LOC: PNCL 13:12
PROVIDERS: ATTEND Anesthesiology
DX: M51.16 Intervertebral disc disorders with radiculopathy, lumbar region (principal); F17.210 Nicotine dependence, cigarettes, uncomplicated; Z79.899 Other long term (current) drug therapy; Z88.8 Allergy status to other drugs, medicaments and biological substances
CPT/HCPCS: 99212; G0463